=== PATIENT | female | born 1960 | race Caucasian/White ===

== ENCOUNTER 2021-03-30 11:13 | Outpatient (CLI) | payer OTHER, SELFPAY ==
[2021-03-30 12:45] VITALS: BP 105/69; PULSE 81; RESP 16; TEMP 36.8; O2SAT 98; BMI 33.4
[2021-03-30 14:38] VITALS: BP 114/75; PULSE 85; O2SAT 95
[2021-03-30 16:28] VITALS: BP 112/78; PULSE 80; RESP 18; TEMP 36.6
== END 2021-03-30 11:14 | disposition home or self-care (01) ==
LOC: OPS 11:16
PROVIDERS: PCP Electrodiagnostic Medicine; Visit Provider Nurse Practitioner Family
DX: U07.1 COVID-19 (principal)
CPT/HCPCS: 96365

== ENCOUNTER 2021-04-09 13:38 | Outpatient (CLI) | payer OTHER, SELFPAY ==
--- NOTE | 2021-04-09 13:43 | MM_ITS ---
WS: [id number] SCREENING DIGITAL MAMMOGRAM WITH CAD HISTORY: SCREENING COMPARISON: None available. Bilateral CC and MLO views submitted. Computer aided detection analyzed. Breast composition: There are scattered areas of fibroglandular density. Mild asymmetries in the uppe r-outer quadrant of the LEFT breast. Several asymmetries are noted in the posterior upper LEFT breast on the MLO projection. The RIGHT breast is negative. MM/[place] [id number] IMPRESSION: BI-RADS: 0-Incomplete: Need additional imaging evaluation FOLLOW UP: Need Additional Imaging LEFT breast: Spot compression views (CC and MLO). True ML. Ultrasound to follow if abnormality persists.
== END 2021-04-09 13:39 | disposition home or self-care (01) ==
LOC: RADSHAW 13:42
PROVIDERS: PCP Electrodiagnostic Medicine; Visit Provider Electrodiagnostic Medicine
DX: Z12.31 Encounter for screening mammogram for malignant neoplasm of breast (principal)
CPT/HCPCS: 77067

== ENCOUNTER 2021-05-28 09:16 | Outpatient (CLI) | payer OTHER, SELFPAY ==
--- NOTE | 2021-05-28 09:20 | US_ITS ---
WS: [id number] ADDITIONAL VIEWS LEFT MAMMOGRAM LEFT BREAST ULTRASOUND HISTORY: LT BREAST MASS COMPARISON: 04/09/2021 LEFT MAMMOGRAM: Spot compression views and true ML. Asymmetries in the upper-outer quadrant of the LEFT breast becomes much less apparent. There is still some very mild prominent soft tissue which will be further evaluated by ultrasound. LEFT BREAST ULTRASOUND 2-D and color Doppler imaging submitted. At 1:00, 3 cm from the nipple in the LEFT breast is a small cyst measuring 4 x 3 x 3 mm. There are a few small mildly prominent ducts. There is an additional lymph node at 3:00. US/US breast LT limited* [id number] IMPRESSION: BI-RADS: 2-Benign FOLLOW UP: 1 Year Follow-up
== END 2021-05-28 09:17 | disposition home or self-care (01) ==
LOC: RADSHAW 09:17
PROVIDERS: PCP Electrodiagnostic Medicine; Visit Provider Electrodiagnostic Medicine
DX: N63.20 Unspecified lump in the left breast, unspecified quadrant (principal); N64.89 Other specified disorders of breast; N60.02 Solitary cyst of left breast
CPT/HCPCS: 76642; 77065

== ENCOUNTER 2022-07-07 08:34 | Outpatient (CLI) | payer OTHER, SELFPAY ==
--- NOTE | 2022-07-07 08:41 | MM_ITS ---
WS: [id number] Bilateral screening 3D tomosynthesis digital mammogram, 07/07/2022 Clinical Data: SCREENING Comparison: 05/28/2021, 03/09/2021. Findings: The breast parenchymal pattern shows heterogeneous density. No spiculated masses or clustered calcifi cations are seen. There are no secondary signs of carcinoma. MM/[place] [id number] Impression: 1. Negative bilateral mammogram unchanged. 2. Recommend annual screening mammograms. BIRADS: 1-Negative FOLLOW UP: 1 Year Follow-up The CAD repairer and checker was used.
== END 2022-07-07 08:35 | disposition home or self-care (01) ==
LOC: RAD 08:35
PROVIDERS: PCP Electrodiagnostic Medicine; Visit Provider Electrodiagnostic Medicine
DX: Z12.31 Encounter for screening mammogram for malignant neoplasm of breast (principal)
CPT/HCPCS: 77063; 77067

== ENCOUNTER 2023-07-13 11:36 | Outpatient (CLI) | payer OTHER, SELFPAY ==
--- NOTE | 2023-07-13 11:42 | MM_ITS ---
WS: [id number] Bilateral screening 3D tomosynthesis digital mammogram, 07/13/2023 Clinical Data: SCREENING Comparison: 07/07/2022, 05/28/2021, 04/09/2021 Findings: The breast parenchymal pattern shows heterogeneous density. No spiculated masses or clustered calcifi cations are seen. There are no secondary signs of carcinoma. Impression: 1. Negative bilateral mammogram unchanged. 2. Recommend annual screening mammograms. MM/[place] [id number] BIRADS: 1-Negative FOLLOW UP: 1 Year Follow-up The CAD cashier checker was used.
== END 2023-07-13 11:37 | disposition home or self-care (01) ==
PROVIDERS: PCP Registered Nurse; Visit Provider Registered Nurse
DX: Z12.31 Encounter for screening mammogram for malignant neoplasm of breast (principal)
CPT/HCPCS: 77063; 77067

== ENCOUNTER → 2023-07-28 07:48 | Outpatient (BNVA) | payer OTHER, SELFPAY | PROVIDERS: PCP Registered Nurse; Visit Provider Student in an Organized Health Care Education/Training Program | DX: M25.562 Pain in left knee (principal); M17.12 Unilateral primary osteoarthritis, left knee | CPT/HCPCS: 73560; 73565 ==

== ENCOUNTER 2023-07-28 10:21 | Outpatient (CLI) | payer OTHER, SELFPAY | END 2023-07-28 10:22 | disposition home or self-care (01) | LOC: SPT 10:21 | PROVIDERS: PCP Registered Nurse; Visit Provider Student in an Organized Health Care Education/Training Program | DX: Z46.89 Encounter for fitting and adjustment of other specified devices (principal); M25.562 Pain in left knee | CPT/HCPCS: 97760; L1851 ==

== ENCOUNTER → 2024-05-11 10:40 | Outpatient (BNVA) | payer MEDICARE, SELFPAY | PROVIDERS: PCP Registered Nurse; Referring Provider Registered Nurse; Visit Provider Nurse Practitioner Family | DX: L30.9 Dermatitis, unspecified (principal); L57.0 Actinic keratosis; L56.5 Disseminated superficial actinic porokeratosis (DSAP); L82.1 Other seborrheic keratosis; L82.0 Inflamed seborrheic keratosis; L57.8 Other skin changes due to chronic exposure to nonionizing radiation | CPT/HCPCS: 17000; 17110; 69100; 99203 ==

== ENCOUNTER 2024-06-27 06:09 | Emergency (ER) | payer MEDICARE, SELFPAY ==
[2024-06-27 06:21] VITALS: BP 107/65; PULSE 69; RESP 18; TEMP 36.4; O2SAT 94; BMI 34.2
--- NOTE | 2024-06-27 06:30 | ED_ITS ---
HPI - Abdominal Pain 2 General: Chief Complaint: Abdominal Pain Stated Complaint: pain above abd area radiates to back, burning Time Seen by Provider: 06/27/24 06:27 History of Present Illness: 64-year-old female presents emergency ro om complaining of abdominal pain radiating to her back. She has had this previously before she states with particular foods seem to exacerbate last night she ate this with red meat and that has caused problems in the past this time it has been more pronounced. She tried some omeprazole as well as some baking soda and water mild relief of symptoms but still persisting she denies dysuria urgency or frequency no hematochezia melena hematemesis or coffee-ground emesis. Only previous surgery patient has had is a hysterectomy Associated Symptoms: Reports nausea and vomiting; Denies chills, coffee ground emesis, diarrhea, dysuria, fever(s), hematochezia, hematemesis and melena Related Data Home Medications Medication Instructions Recorded Confirmed atorvastatin 40 mg tablet 40 mg PO DAILY 07/28/23 06/27/24 cyclobenzaprine 10 mg tablet 10 mg PO TID 07/28/23 06/27/24 lisinopril 20 1 tab PO DAILY 07/28/23 06/27/24 mg-hydrochlorothiazide 12.5 mg tablet meloxicam 15 mg tablet 15 mg PO DAILY 07/28/23 06/27/24 eptucvvpdzku-hbijfzoq-ljddf acid 1 cap PO DAILY 06/27/24 06/27/24 400 mcg-vitamin K 80 mcg capsule (Multi For Her 50 Plus) tramadol 50 mg tablet 50 mg PO Q6H PRN Pain 06/27/24 06/27/24 triamcinolone acetonide 0.1 % 1 applic topical BID PRN Skin 06/27/24 06/27/24 topical cream Irritation Previous Rx's Medication Instructions Recorded left knee controlled area checker brace #1 ea 07/28/23 hydrocodone 5 mg-acetaminophen 325 1 tab PO Q6H PRN pain #30 tabs 06/27/24 mg tablet promethazine 25 mg tablet 25 mg PO Q6H PRN nausea and 06/27/24 vomiting #20 tabs Allergies Allergy/AdvReac Type Severity Reaction Status Date / Time No Known Allergies Allergy Verified 06/27/24 06:24 Review of Systems 2 Const: Denies: fever(s) or chills Card: Denies: chest pain Resp: Denies: dyspnea GI: Reports: abdominal pain, nausea and vomiting; Denies: hematemesis, coffee ground emesis, diarrhea, hematochezia or melena : Denies: dysuria, urinary frequency or urinary urgency Musc: Denies: neck pain or back pain Skin/Breast: Denies: rash PFSH ED 2 PFSH: Surgical History (Updated 06/27/24 @ 06:54 by Tyler Meneses DO) History of hysterectomy Social History Smoking and tobacco/nicotine status: never used tobacco/nicotine Alcohol intake: current Alcohol intake frequency: holidays/special occasions only Physical Exam 2 Const: GENERAL APPEARANCE: cooperative ORIENTATION/CONSCIOUSNESS: Yes awake, Yes oriented to person, Yes oriented to place and Yes oriented to time HENMT: COMMON NORMALS: normocephalic, atraumatic and hearing grossly normal bilaterally HEAD & SCALP: normocephalic and atraumatic Resp: COMMON NORMALS: normal respiratory effort, No retractions, No use of accessory muscles and clear to auscultation bilaterally AUSCULTATION: clear to auscultation bilaterally Cardio: COMMON NORMALS: regular rate, regular rhythm and No murmurs present (Cardio) RATE: regular rate RHYTHM: regular rhythm GI: COMMON NORMALS: Soft to palpation and No hepatosplenomegaly present A USCULTATION: Yes normoactive bowel sounds PALPATION: Yes Soft to palpation, No Tenderness to palpation present (GI), No Guarding due to palpation present (GI) and Yes No hepatosplenomegaly present Extremity: COMMON NORMALS: normal to inspection, capillary refill normal, no clubbing, cyanosis or edema, no calf tenderness and no pedal edema Neuro: SENSORIUM/ORIENTATION: Yes oriented to person, Yes oriented to place and Yes oriented to time Skin: COMMON NORMALS: no rashes or lesions noted GENERAL SKIN EXAM: no rashes or lesions noted Course 2 Vital Signs: Vital signs: Vital Signs Temperature 97.6 F 06/27/24 06:21 Pulse Rate 88 06/27/24 10:12 Respiratory Rate 15 06/27/24 07:04 Blood Pressure 127/83 06/27/24 10:12 Pulse Oximetry 96 06/27/24 10:12 Oxygen Delivery Me thod Room Air 06/27/24 07:04 MDM - Abdominal Pain Medical Decision Making Labs and imaging reviewed. Patient is feeling somewhat better. Given her history of recurrent epigastric right upper quadrant pain radiating to the back with persistent specific foods I do believe she is having biliary colic precipitated by her cholelithiasis. No sign of acute cholecystitis at this time she is feeling better will discharge home with promethazine and hydrocodone to use as needed and set her up to have follow-up with general surgery for treatment options for her biliary colic/cholelithiasis. Medical Records I reviewed the patient's medical records. Lab Data I reviewed the patient's lab results. 06/27/24 08:39 06/27/24 08:39 Labs/Radiology: Radiology Impressions Gallbladder Ultrasound 06/27/24 06:37 IMPRESSION: Cholelithiasis without clear evidence cholecystitis. Laboratory Results WBC 11.95 10^3/uL (3.29-11.43) H 06/27/24 08:39 RBC 4.20 10^6/uL (3.85-5.65) 06/27/24 08:39 Hgb 13.10 g/dL (11.27-16.99) 06/27/24 08:39 Hct 40.4 % (36-47) 06/27/24 08:39 MCV 96.2 fl (85-98) 06/27/24 08:39 MCH 31.2 pg (27-33) 06/27/24 08:39 MCHC 32.4 g/dL (30-55) 06/27/24 08:39 RDW 12.6 % (12.1-15.1) 06/27/24 08:39 Plt Count 266 10^3/cmm (157-399) 06/27/24 08:39 MPV 10.8 fL (7.4-10.4) H 06/27/24 08:39 Neut % (Auto) 83.2 % 06/27/24 08:39 Lymph % (Auto) 11.4 % 06/27/24 08:39 [place] % (Auto) 4.2 % 06/27/24 08:39 Eos % (Auto) 0.3 % 06/27/24 08:39 Baso % (Auto) 0.4 % 06/27/24 08:39 Neut # (Auto) 9.95 10^3/uL (1.8-7.7) H 06/27/24 08:39 Lymph # (Auto) 1.4 10^3/uL (0.8-4.8) 06/27/24 08:39 [place] # (Auto) 0.5 10^3/uL (0.2-0.9) 06/27/24 08:39 Eos # (Auto) 0.0 10^3/uL (0.0-0.8) 06/27/24 08:39 Baso # (Auto) 0.1 10^3/uL (0.0-0.1) 06/27/24 08:39 Nucleated RBC % (auto) 0 % 06/27/24 08:39 Nucleated RBCs # 0.0 /100WBC 06/27/24 08:39 Sodium 139 mmol/L (136-145) 06/27/24 08:39 Potassium 3.1 mmol/L (3.5-5.1) L 06/27/24 08:39 Chloride 96 mmol/L (98-107) L 06/27/24 08:39 Carbon Dioxide 31 mmol/L (22-29) H 06/27/24 08:39 Anion Gap 15.1 (5-19) 06/27/24 08:39 BUN 17 mg/dL (8-23) 06/27/24 08:39 Creatinine 0.6 mg/dL (0.5-0.9) 06/27/24 08:39 GFR Calculation 100.3 mL/min (90-130) 06/27/24 08:39 Glucose 130 mg/dL (65-115) H 06/27/24 08:39 Calculated Osmolality 291 mOsm/kg (285-295) 06/27/24 08:39 Calcium 9.5 mg/dL (8.5-10.5) 06/27/24 08:39 Total Bilirubin 0.6 mg/dL (0.15-1.2) 06/27/24 08:39 AST 19 U/L (0-32) 06/27/24 08:39 ALT 17 U/L (0-33) 06/27/24 08:39 Alkaline Phosphatase 116 U/L (35-105) H 06/27/24 08:39 Total Protein 6.8 g/dL (6.6-8.7) 06/27/24 08:39 Albumin 4.0 g/dL (3.5-5.2) 06/27/24 08:39 Globulin 2.8 g/dL (1.3-4.6) 06/27/24 08:39 Lipase 22 U/L (13-60) 06/27/24 08:39 Urine Color Yellow (Yellow) 06/27/24 07:56 Urine Appearance Cloudy (CLEAR) A 06/27/24 07:56 Urine pH >=9.0 (5-7) A 06/27/24 07:56 Ur Specific [place] 1.018 (1.005-1.030) 06/27/24 07:56 Urine Protein Trace (Negative) A 06/27/24 07:56 Urine Glucose (UA) Negative (Normal) 06/27/24 07:56 Urine Ketones Negative (Negative) 06/27/24 07:56 Urine Blood Negative (Negative) 06/27/24 07:56 Urine Nitrate Negative (Negative) 06/27/24 07:56 Urine Bilirubin Negative (Negative) 06/27/24 07:56 Urine Urobilinogen 1.0 mg/dL (Negative) 06/27/24 07:56 Ur Leukocyte Esterase Trace (Negative) A 06/27/24 07:56 Urine RBC 3-5 /hpf (0-2) 06/27/24 07:56 Urine WBC 0-5 /hpf (0-5) 06/27/24 07:56 Ur Squamous Epith Cells 0-5 /hpf (0-5) 06/27/24 07:56 Amorphous Sediment Not Reportable 06/27/24 07:56 Urine Bacteria None seen /hpf (NONE) 06/27/24 07:56 Hyaline Casts 0.81 /lpf 06/27/24 07:56 All radiology interpretation(s) finalized by discharge Discharge Plan Discharge Patient Disposition: Home Clinical Impression: Biliary colic, Cholelithiasis Condition: Stable Prescriptions: New hydrocodone-acetaminophen 5-325 mg tablet 1 tab PO Q6H PRN (Reason: pain) Qty: 30 0RF promethazine 25 mg tablet 25 mg PO Q6H PRN (Reason: nausea and vomiting) Qty: 20 0RF No Action cyclobenzaprine 10 mg tablet 10 mg PO TID lisinopril-hydrochlorothiazide 20-12.5 mg tablet 1 tab PO DAILY atorvastatin 40 mg tablet 40 mg PO DAILY meloxicam 15 mg tablet 15 mg PO DAILY (DME) left knee controlled area checker brace See Rx Instructions .Route .MEDSUPPLY Qty: 1 0RF Rx Instructions: As directed tramadol 50 mg tablet 50 mg PO Q6H PRN (Reason: Pain) Multi For Her 50 Plus 400-80 mcg Capsule 1 cap PO DAILY triamcinolone acetonide 0.1 % cream 1 applic TOPICAL BID PRN (Reason: Skin Irritation) Discharge Orders: Discharge ED (Routine); Ordered 06/27/24 Ordered By: Tyler Meneses Referrals: Janice Davis FNP [Primary Care Provider] - Discharge Diet: As Directed Discharge Activity: Increase activity as tolerated Patient Instructions: Cholelithiasis, Biliary Colic (ED), Abdominal Pain (ED), Opioid Safety, Pain Management Activity Restrictions/Additional Instructions: Thank you for choosing [facility] for your healthcare needs today. It is very important that you follow up as instructed or that you return to the Emergency Department should you have concerns or if your condition changes or worsens in any way. You are seen in the emergency room with complaints of abdominal pain radiating to your back. Your pain is from biliary colic you do have a solitary stone there is no obstruction or infection of the gallbladder at this time. Avoid foods that are likely to exacerbate this such as red meat fried foods citrus foods tomato-based products dairy products or fatty foods. it program manager will make arrangements for you to follow-up with general surgery. Coding Level of Care Code ED Stationary Boiler Fireman for Segundo Lackey
--- NOTE | 2024-06-27 06:37 | USR_ITS ---
PROCEDURE INFORMATION: Exam: US Abdomen, Limited; Right Upper Quadrant Exam date and time: 06/27/2024 6:46 AM Age: 64 years old Clinical indication: Abdominal pain; Generalized TECHNIQUE: Imaging protocol: Real time ultrasound of the abdomen with image documentation. Limited exam focused on the right upper quadrant. COMPARISON: No relevant prior studies available. FINDINGS: Liver: Normal. No masses. Patent main portal vein with normal direction of flow. Gallbladder: Distended gallbladder containing gallstones noted. No gallbladder wall thickening. No pericholecystic fluid. Biliary ducts: Normal. No stones. No dilation. Pancreas: Visualized pancreas is unremarkable. Right kidney: Normal. No mass. No hydronephrosis. US/US gall bladder [id number] IMPRESSION: Cholelithiasis without clear evidence cholecystitis.
[2024-06-27 07:04] VITALS: BP 115/66; PULSE 71; RESP 15; O2SAT 97
[2024-06-27] MEDS: lidocaine 2% viscous 15 ML, aluminum-mag hydrox-simethicon 30 ML, sucralfate oral liq 1 GM PO (07:43)
[2024-06-27 07:59] VITALS: BP 132/64; PULSE 64; O2SAT 95
[2024-06-27 08:19] LABS: Bilirubin Urine Negative (Negative); Blood Urine Negative (Negative); Glucose Urine UA Negative (Normal); Ketones Urine Negative (Negative); Leukocyte Esterase Urine Trace (Negative); Nitrate Urine Negative (Negative); Protein Urine Trace (Negative); Specific Gravity, Urine 1.018 (1.005-1.030); Urine Appearance Cloudy (CLEAR); Urine Color Yellow (Yellow); pH Urine >=9.0 (5-7)
[2024-06-27 08:24] LABS: Add Urine Microscopic? YES; Bacteria Urine None Seen /hpf; Hyaline Casts Urine 0.81 /lpf; Squamous Epithelial Cell Urine 0-5 /hpf (0-5); WBC Urine 0-5 /hpf (0-5)
[2024-06-27 08:49] LABS: Basophils # 0.1 10^3/uL (0.0-0.1); Basophils % 0.4 %; Eosinophils % 0.3 %; Hematocrit 40.4 % (36-47); Lymphocytes # 1.4 10^3/uL (0.8-4.8); Lymphocytes % 11.4 %; Mean Corpuscular HGB Conc 32.4 g/dL (30-55); Mean Corpuscular Hemoglobin 31.2 pg (27-33); Mean Corpuscular Volume 96.2 fl (85-98); Mean Platelet Volume 10.8 fL (7.4-10.4); Monocytes # 0.5 10^3/uL (0.2-0.9); Monocytes % 4.2 %; Neutrophils # 9.95 10^3/uL (1.8-7.7); Neutrophils % 83.2 %; Nucleated Red Blood Cells % 0 %; Platelet Count 266 10^3/cmm (157-399); Red Cell Distribution Width 12.6 % (12.1-15.1); White Blood Count 11.95 10^3/uL (3.29-11.43)
--- NOTE | 2024-06-27 08:53 | ECG_ITS ---
[employer] Test Date: 2024-06-27 Pat Name: Caroline Vallejo Department: Room: Gender: Female Tank Builder: : 1960 Requested By: Tyler Gardner Order Number: [id number] En MD: Shona Vasquez M.D. Measurements Intervals Price Rate: 61 P: 61 OH: 176 QRS: 81 QRSD: 96 T: 40 QT: 412 QTc: 415 Interpretive Statements SINUS RHYTHM LOW QRS VOLTAGE IN PRECORDIAL LEADS [QRS DEFLECTION < 1.0 mV IN CHEST LEADS] NONSPECIFIC T-WAVE ABNORMALITY No previous ECG available for comparison Electronically Signed On 06-27-2024 21:43:33 CNC PROGRAMMER by Shona Vasquez M.D. [email or web address]
[2024-06-27 09:00] LABS: Alanine Aminotransferase 17 U/L (0-33); Alkaline Phosphatase 116 U/L (35-105); Anion Gap 15.1 (5-19); Aspartate Amino Transferase 19 U/L (0-32); Blood Urea Nitrogen 17 mg/dL (8-23); Calcium 9.5 mg/dL (8.5-10.5); Carbon Dioxide 31 mmol/L (22-29); Chloride 96 mmol/L (98-107); Creatinine Clr Calc Pharmacy 79.2182; Globulin 2.8 g/dL (1.3-4.6); Glomerular Filtration Rate 100.3 mL/min (90-130); Glucose 130 mg/dL (65-115); Lipase 22 U/L (13-60); Osmolality Calculated 291 mOsm/kg (285-295); Potassium 3.1 mmol/L (3.5-5.1); Sodium 139 mmol/L (136-145); Total Bilirubin 0.6 mg/dL (0.15-1.2); Total Protein 6.8 g/dL (6.6-8.7)
[2024-06-27 09:46] VITALS: BP 127/83; PULSE 88; O2SAT 96
[2024-06-27 10:12] VITALS: BP 127/83; PULSE 88; O2SAT 96
--- NOTE | 2024-06-28 09:27 | DCPLANNER ---
messaged gen surg for er f/u
== END 2024-06-27 10:14 | disposition home or self-care (01) ==
PROVIDERS: Emergency Provider Family Medicine; PCP Registered Nurse
DX: K80.50 Calculus of bile duct without cholangitis or cholecystitis without obstruction (principal); K80.20 Calculus of gallbladder without cholecystitis without obstruction
CPT/HCPCS: 76705; 80053; 81001; 83690; 85025; 93005; 99284

== ENCOUNTER → 2024-07-12 13:38 | Outpatient (BNVA) | payer MEDICARE, SELFPAY | PROVIDERS: PCP Registered Nurse; Visit Provider Physician Assistant | DX: M17.0 Bilateral primary osteoarthritis of knee (principal) | CPT/HCPCS: 20610; 99213; J3301 ==

== ENCOUNTER → 2024-07-30 12:53 | Outpatient (BNVA) | payer MEDICARE, SELFPAY | PROVIDERS: PCP Registered Nurse; Visit Provider Surgery | DX: K80.20 Calculus of gallbladder without cholecystitis without obstruction (principal) | CPT/HCPCS: 99204 ==

== ENCOUNTER 2024-08-06 15:29 | Outpatient (CLI) | payer MEDICARE, SELFPAY ==
--- NOTE | 2024-08-06 15:30 | MM_ITS ---
WS: [id number] BILATERAL 3D TOMOSYNTHESIS DIGITAL SCREENING MAMMOGRAPHY WITH CAD CLINICAL INFORMATION: SCREENING HISTORY: Screening mammogram. No current complaints. COMPARISON: 07/13/2023 TECHNIQUE: Bilateral CC and MLO views. FINDINGS: The breasts are composed of heterogeneous fibroglandular density tissue, which can limit the detectio n of small underlying mass lesions. No suspicious mass, asymmetry, calcifications, or architectural d istortion. No evidence of malignancy. Ovoid nodule anterior RIGHT breast stable since 2020. MM/MM [facility] tomosynthesis [id number] IMPRESSION: DENSITY: The breasts are heterogeneously dense, which may obscure small masses. BI-RADS: 2 - Benign FOLLOW UP: 1 Year Follow-up Recommend return to annual screening mammography.
== END 2024-08-06 15:30 | disposition home or self-care (01) ==
LOC: RAD 15:29
PROVIDERS: PCP Registered Nurse; Visit Provider Registered Nurse
DX: Z12.31 Encounter for screening mammogram for malignant neoplasm of breast (principal); R92.333 Mammographic heterogeneous density, bilateral breasts; N63.10 Unspecified lump in the right breast, unspecified quadrant
CPT/HCPCS: 77063; 77067

== ENCOUNTER 2024-10-31 14:36 | Outpatient (CLI) | payer MEDICARE, SELFPAY ==
--- NOTE | 2024-10-31 14:39 | XR_ITS ---
WS: [id number] DEXA (DUAL ENERGY X-RAY ABSORPTIOMETRY) Bone mineral density was performed using a [employer] machine. HISTORY: POST MENOPAUSE COMPARISON: None available. Lumbar spine BMD (L1-L4): 1.716 g/cm2 T score: 4.5 Z score: 5.2 Total hip BMD: Left: 1.163 g/cm2. T score: 1.2 Z score: 1.8 Right: 1.080 g/cm2. T score: 0.6 Z score: 1.2 10 year probability of a major osteoporotic fracture is 6.7%. XR/XR DEXA axial skeleton* [id number] IMPRESSION: NORMAL BONE MINERAL DENSITY based upon the WHO classification for females.
== END 2024-10-31 14:37 | disposition home or self-care (01) ==
LOC: RAD 14:36
PROVIDERS: PCP Registered Nurse; Visit Provider Registered Nurse
DX: Z78.0 Asymptomatic menopausal state (principal)
CPT/HCPCS: 77080

== ENCOUNTER → 2024-11-21 14:50 | Outpatient (BNVA) | payer MEDICARE, SELFPAY | PROVIDERS: PCP Registered Nurse; Visit Provider Physician Assistant | DX: M17.0 Bilateral primary osteoarthritis of knee (principal); Z71.89 Other specified counseling | CPT/HCPCS: 20610; 99213; J3301; J9999 ==

== ENCOUNTER → 2025-02-22 09:00 | Outpatient (BNVA) | payer MEDICARE, SELFPAY | PROVIDERS: PCP Registered Nurse; Visit Provider Physician Assistant | DX: M17.0 Bilateral primary osteoarthritis of knee (principal); Z71.89 Other specified counseling | CPT/HCPCS: 20610; 99213; J3301; J9999 ==

== ENCOUNTER → 2025-05-28 09:10 | Outpatient (BNVA) | payer MEDICARE, SELFPAY | PROVIDERS: PCP Registered Nurse; Visit Provider Physician Assistant | DX: M17.0 Bilateral primary osteoarthritis of knee (principal) | CPT/HCPCS: 20610; 73560; 73565; 99213; J3301; J9999 ==